=== PATIENT | female | born 1935 | race Caucasian/White ===

== ENCOUNTER 2022-03-05 19:09 | Emergency (ER) | payer MEDICARE, OTHER ==
[2022-03-05] MEDS: Sodium Phosphate,Monobasic/Sodium Phosphate,Dibasic Enema 133 ML Bottle RECTAL ONE (19:35)
== END 2022-03-05 21:05 | disposition home or self-care (01) ==
LOC: VM.ED 19:09
DX: K59.00 Constipation, unspecified (principal); I25.10 Atherosclerotic heart disease of native coronary artery without angina pectoris; I10 Essential (primary) hypertension; Z88.0 Allergy status to penicillin; Z88.5 Allergy status to narcotic agent; Z88.1 Allergy status to other antibiotic agents; Z79.01 Long term (current) use of anticoagulants; Z79.82 Long term (current) use of aspirin; Z79.899 Other long term (current) drug therapy; Z90.49 Acquired absence of other specified parts of digestive tract; Z90.710 Acquired absence of both cervix and uterus
CPT/HCPCS: 99283; 99284; A9270-GY

== ENCOUNTER 2022-12-13 13:09 | Inpatient (IN) | payer MEDICARE, OTHER ==
[2022-12-13] MEDS ORDERED: Sodium Chloride 0.9% 10 ML Syringe FLUSH PRN (13:27)
[2022-12-13 13:39] LABS: BASOPHILS PERCENT AUTO 0.1 % (0.2-1.2); EOSINOPHILS ABSOLUTE AUTO 0.2 x10^3/uL (0.0-0.5); EOSINOPHILS PERCENT AUTO 2.4 % (0.0-4.0); HEMOGLOBIN 12.5 g/dL (12.0-16.0); IMMATURE GRAN ABSOLUTE AUTO 0.01 x10^3/uL (0.00-0.07); LYMPHOCYTES ABSOLUTE AUTO 1.2 x10^3/uL (1.0-4.8); MEAN CORPUSCULAR HEMOGLOBIN 32.6 pg (26.0-32.0); MEAN CORPUSCULAR HGB CONC 34.7 g/dL (32.0-36.0); MEAN CORPUSCULAR VOLUME 93.8 fL (78.0-93.0); MONOCYTES ABSOLUTE AUTO 0.6 x10^3/uL (0.0-0.8); MONOCYTES PERCENT AUTO 9.4 % (2.0-11.0); NEUTROPHILS ABSOLUTE AUTO 4.7 x10^3/uL (1.8-7.7); PLATELET COUNT,PLT 184 x10^3/uL (130-400); RED BLOOD CELL COUNT 3.84 x10^6/uL (4.00-5.50); WHITE BLOOD CELL COUNT,WBC 6.7 x10^3/uL (4.0-10.0)
[2022-12-13 14:02] LABS: PROTHROMBIN TIME 10.5 SEC (9.5-12.2); PTT,PARTIAL THROMBOPLSTIN TIME 26.7 SEC (23.6-33.6)
[2022-12-13 14:09] LABS: A/G RATIO 1.32; ALANINE AMINOTRANSFERASE,ALT 7 U/L (14-59); ALBUMIN 3.7 g/dL (3.4-5.0); ALKALINE PHOSPHATASE 161 U/L (46-116); ASPARTATE AMNIOTRANSFERASE,AST 20 U/L (15-37); BILIRUBIN TOTAL 0.8 mg/dL (0.2-1.0); BLOOD UREA NITROGEN,BUN 19 mg/dL (7-18); C-REACTIVE PROTEIN 0.11 mg/dL (<=0.30); CALCIUM 8.9 mg/dL (8.5-10.1); CARBON DIOXIDE,CO2 31 mmol/L (21-32); CHLORIDE,CL 101 mmol/L (98-107); CREATININE 0.7 mg/dL (0.55-1.02); GLUCOSE RANDOM 109 mg/dL (70-99); POTASSIUM,K 4.2 mmol/L (3.5-5.1); PROTEIN TOTAL,TP 6.5 g/dL (6.4-8.2); SODIUM,NA 139 mmol/L (136-145); TSH ULTRASENSITIVE 2.407 uIU/mL (0.358-3.74)
[2022-12-13 14:11] LABS: ANION GAP 11.2 mmol/L (5-15); ESTIMATED GFR 85 mL/min (>=60)
[2022-12-13] MEDS ORDERED: Iopamidol 755 Mg/ML 100 ML Bottle IVPUSH ONE (14:23)
[2022-12-13 14:40] LABS: LACTIC ACID 0.6 mmol/L (0.4-2.0)
[2022-12-13] MEDS ORDERED: Aspirin 81 MG Tab.Chew PO ONE (15:13)
[2022-12-13] MEDS ORDERED: Nitroglycerin 0.4 MG Tab.SL SL ONE (15:38)
[2022-12-13] MEDS ORDERED: Heparin Sodium 5,000 Units/ML Vial IVPUSH ONE (15:39)
[2022-12-13] MEDS ORDERED: Heparin Sodium/0.45% NaCl 25,000 UNITS/500 ML BAG IV STA (15:39)
[2022-12-13] MEDS ORDERED: ALPRAZolam 0.25 MG Tab PO PRN (17:49)
[2022-12-13] MEDS ORDERED: Acetaminophen 500 MG Tab PO PRN (17:49)
[2022-12-13] MEDS ORDERED: Isosorbide Mononitrate 60 MG Tab.ER PO SCH (20:15)
[2022-12-13] MEDS ORDERED: Carbidopa/Levodopa 50-200 MG Tab.ER PO SCH (21:00)
[2022-12-13] MEDS ORDERED: Rosuvastatin 20 MG Tab PO SCH (21:00)
[2022-12-13] MEDS ORDERED: traZODone 50 MG Tab PO SCH (21:00)
[2022-12-13] MEDS ORDERED: Gabapentin 300 MG Cap PO SCH (21:00)
[2022-12-13] MEDS: Polyethylene Glycol 3350 Powder 17 GM Packet PO SCH (22:49)
[2022-12-13] MEDS: Pantoprazole 40 MG Tab.CR PO SCH (22:50)
[2022-12-14] MEDS ORDERED: Carbidopa/Levodopa 50-200 MG Tab.ER PO PRN (01:00)
[2022-12-14] MEDS: Pantoprazole 40 MG Tab.CR PO SCH (06:05)
[2022-12-14 07:03] LABS: BASOPHILS PERCENT AUTO 0.1 % (0.2-1.2); EOSINOPHILS ABSOLUTE AUTO 0.2 x10^3/uL (0.0-0.5); EOSINOPHILS PERCENT AUTO 2.8 % (0.0-4.0); HEMOGLOBIN 12.1 g/dL (12.0-16.0); IMMATURE GRAN ABSOLUTE AUTO 0.02 x10^3/uL (0.00-0.07); LYMPHOCYTES ABSOLUTE AUTO 1.4 x10^3/uL (1.0-4.8); LYMPHOCYTES PERCENT AUTO 18.3 % (25.0-50.0); MEAN CORPUSCULAR HEMOGLOBIN 32.4 pg (26.0-32.0); MEAN CORPUSCULAR HGB CONC 34.6 g/dL (32.0-36.0); MEAN CORPUSCULAR VOLUME 93.6 fL (78.0-93.0); MONOCYTES ABSOLUTE AUTO 0.8 x10^3/uL (0.0-0.8); MONOCYTES PERCENT AUTO 9.7 % (2.0-11.0); NEUTROPHILS ABSOLUTE AUTO 5.4 x10^3/uL (1.8-7.7); NEUTROPHILS PERCENT AUTO 68.8 % (50.0-80.0); PLATELET COUNT,PLT 172 x10^3/uL (130-400); RED BLOOD CELL COUNT 3.74 x10^6/uL (4.00-5.50); WHITE BLOOD CELL COUNT,WBC 7.9 x10^3/uL (4.0-10.0)
[2022-12-14 07:25] LABS: A/G RATIO 1.26; ALBUMIN 3.4 g/dL (3.4-5.0); CALCIUM 8.5 mg/dL (8.5-10.1); CREATININE 0.6 mg/dL (0.55-1.02); EST CRCL DRUG DOSING (CG) 56.71 mL/min; PROTEIN TOTAL,TP 6.1 g/dL (6.4-8.2)
[2022-12-14] MEDS ORDERED: Clopidogrel 75 MG Tab PO SCH (09:00)
[2022-12-14] MEDS ORDERED: Metoprolol Succinate 25 MG Tab.ER PO SCH (09:00)
[2022-12-14] MEDS ORDERED: Isosorbide Mononitrate 30 MG Tab.ER PO SCH (09:00)
[2022-12-14] MEDS ORDERED: Aspirin 81 MG Tab.EC PO SCH (09:00)
[2022-12-14] MEDS ORDERED: Multivitamin Tab PO SCH (09:00)
[2022-12-14] MEDS ORDERED: Lidocaine 4% 1 each Patch TOP SCH (09:00)
[2022-12-14] MEDS ORDERED: Cholecalciferol (Vitamin D3) 25 MCG Tab PO SCH (09:00)
[2022-12-14] MEDS ORDERED: Lisinopril 5 MG Tab PO SCH (09:00)
[2022-12-14] MEDS ORDERED: Calcium Carbonate/Vitamin D3 1250 MG-5 MCG Tab PO SCH (09:00)
[2022-12-14] MEDS ORDERED: DULoxetine 60 MG Cap PO SCH (09:00)
[2022-12-14] MEDS: Polyethylene Glycol 3350 Powder 17 GM Packet PO SCH ×2 (09:13→09:21)
[2022-12-14] MEDS: Carbidopa/Levodopa 25-100 MG Tab PO SCH ×2 (09:15→11:10)
[2022-12-14] MEDS ORDERED: Ferrous Sulfate 325 MG Tab PO SCH (18:00)
[2022-12-14] MEDS ORDERED: REMOVE LIDODERM TRDERM SCH (21:00)
== END 2022-12-14 13:25 | disposition home or self-care (01) | DRG 282 ==
LOC: VM.ED 13:09 → VM.MS 17:00
PROVIDERS: ADMIT Internal Medicine; ATTEND Internal Medicine
DX: I21.4 Non-ST elevation (NSTEMI) myocardial infarction (principal); I25.10 Atherosclerotic heart disease of native coronary artery without angina pectoris; I10 Essential (primary) hypertension; E78.00 Pure hypercholesterolemia, unspecified; E78.5 Hyperlipidemia, unspecified; K21.9 Gastro-esophageal reflux disease without esophagitis; H91.90 Unspecified hearing loss, unspecified ear; M19.90 Unspecified osteoarthritis, unspecified site; M81.0 Age-related osteoporosis without current pathological fracture; G20 Parkinson's disease; G62.9 Polyneuropathy, unspecified; F41.9 Anxiety disorder, unspecified; Z96.611 Presence of right artificial shoulder joint; J98.4 Other disorders of lung; G47.00 Insomnia, unspecified; G25.81 Restless legs syndrome; Z95.1 Presence of aortocoronary bypass graft; Z95.5 Presence of coronary angioplasty implant and graft; Z95.2 Presence of prosthetic heart valve; Z88.0 Allergy status to penicillin; Z88.1 Allergy status to other antibiotic agents; Z88.8 Allergy status to other drugs, medicaments and biological substances; Z79.82 Long term (current) use of aspirin; Z79.02 Long term (current) use of antithrombotics/antiplatelets; Z79.899 Other long term (current) drug therapy; Z79.2 Long term (current) use of antibiotics; Z90.49 Acquired absence of other specified parts of digestive tract; Z90.710 Acquired absence of both cervix and uterus; Z98.890 Other specified postprocedural states; Z85.820 Personal history of malignant melanoma of skin; Z87.11 Personal history of peptic ulcer disease; Z98.51 Tubal ligation status
CPT/HCPCS: 36415; 71045; 71275; 80053; 83605; 83735; 84443; 84484; 85025; 85379; 85610; 85730; 86140; 87040 ×2; 93005; A9270 ×2; J1644 ×2; Q9967; 83880; 93010; 96365; 99284; 99285-25